=== PATIENT | female | born 1995 | race Caucasian/White ===

== ENCOUNTER → 2017-04-26 09:11 | Outpatient (CLI) | payer BC, MEDICAID, SELFPAY ==
--- NOTE | 2017-04-26 09:14 | NM_ITS ---
CLINICAL: 22-year-old female with reported history of right upper quadrant abdominal pain. RADIONUCLIDE HEPATOBILIARY SCINTIGRAPHY COMPARISON: Abdominal ultrasound report 04/19/2017 FINDINGS: Following the intravenous administration of 5.1 mCi of 99m Tc Mebrofenin, hepatobiliary images reveal: 1. Relatively prompt and homogeneous radiopharmaceutical concentration is noted by a normal sized liver. No parenchymal defects are identified. 2. Gallbladder activity is identified at 10 minutes post radiopharmaceutical administration. 3. Small intestinal tract is not visualized during 60 minutes of pre-CCK sequential imaging. Small bowel activity is identified following the administration of cholecystokinin. 4. Washout of the radiopharmaceutical by the hepatic parenchyma appears qualitatively normal. Cholecystokinin (0.02 ug/kg) was administered intravenously over a 30-minute period. The post CCK gallbladder ejection fraction calculated at 20 minutes following Cholecystokinin administration was noted to be 79.0 % (normal greater than 35%). During 30 minutes of post CCK imaging, there is no scintigraphic evidence of reflux of the radiotracer into the common hepatic duct or refilling of the gallbladder. NM/Hepatobilliary Imaging IMPRESSION: 1. NORMAL 99m Tc Mebrofenin hepatobiliary imaging examination with Cholecystokinin. A. A gallbladder ejection fraction calculated to be greater than 35% following the administration of Cholecystokinin makes the probability of functional hepatobiliary disease (gallbladder and/or sphincter of Oddi dyskinesia) and/or organic hepatobiliary disease (chronic acalculous cholecystitis and/or cystic duct syndrome) to be low. (Roni Riggs et al, Journal of Nuclear Medicine 32:1695, 1990). Electronically Signed: Fernando Manley DO at 9:07 EST Tel , Service support ,
== END ==
PROVIDERS: Family Provider Family Medicine; PCP Family Medicine; Visit Provider Family Medicine
DX: R10.9 Unspecified abdominal pain (principal)
CPT/HCPCS: 78226; A9537; J2805

== ENCOUNTER → 2021-08-21 | Outpatient (CLI) | payer OTHER, SELFPAY ==
[2021-08-21 14:52] LABS: Absolute Lymphocyte Count 1.69 X10^3/uL (0.83-4.51); Absolute Neutrophil Count 4.8 X10^3/uL (2.0-7.7); Basophil# 0.03 X10^3/uL; Basophil% 0.4 % (0-1); Eosinophil# 0.07 X10^3/uL; Hematocrit 43.3 % (37-47); Hemoglobin 14.3 g/dL (12.0-15.0); Lymphocyte # 1.69 X10^3/ul (0.83-4.51); Lymphocyte % 23.2 % (19-41); Mean Corpuscular Hgb 30.8 pg (27.0-32.0); Mean Corpuscular Volume 93.1 fL (81-99); Mean Platelet Vol. 11.2 fl (6.2-12.0); Monocyte# 0.68 X10^3/uL; Monocyte% 9.3 % (0-10); NRBC Flagged by Analyzer 0 % (0-5); Neutrophil # 4.78 X10^3/uL (2.7-7.7); Neutrophil % 65.7 % (47-70); Platelet Count 332 K/mm3 (150-450); RBC Distribution Width SD 41.2 fl (35.1-43.9); Red Blood Count 4.65 M/mm3 (4.2-5.4); White Blood Count 7.3 K/mm3 (4.4-11.0)
[2021-08-21 16:10] LABS: HIV - WCH Non-Reactive (Nonreactive); Hepatitis B Surface Antigen Non-Reactive (Nonreactive); Hepatitis C Antibody Non-Reactive (Nonreactive); Rubella IgG Reactive (Nonreactive); Syphilis Antibodies Non-reactive
[2021-08-25 02:07] LABS: Chlamydia By Nucleic Acid AMP Negative (Negative)
[2021-08-25 16:45] LABS: Gonococcus By Nucleic Acid AMP Negative (Negative)
[2021-08-27 22:30] LABS: HPV Reflexed? NOT INDICATED
== END | disposition home or self-care (01) ==
LOC: WOBLAB 14:29
PROVIDERS: PCP Family Medicine; Visit Provider Student in an Organized Health Care Education/Training Program
DX: Z34.81 Encounter for supervision of other normal pregnancy, first trimester (principal); Z12.4 Encounter for screening for malignant neoplasm of cervix; Z11.3 Encounter for screening for infections with a predominantly sexual mode of transmission
CPT/HCPCS: 36415; 85025; 86703; 86762; 86780; 86803; 87086; 87088; 87340; 87491; 87591; 88175; G0145

== ENCOUNTER → 2021-09-26 | Outpatient (CLI) | payer OTHER, SELFPAY ==
[2021-09-26 15:51] LABS: Glucose Challenge Gest 1H 50g 119 mg/dL (70-140)
== END | disposition home or self-care (01) ==
PROVIDERS: PCP Family Medicine; Visit Provider Obstetrics & Gynecology
DX: Z34.81 Encounter for supervision of other normal pregnancy, first trimester (principal)
CPT/HCPCS: 36415; 82950

== ENCOUNTER → 2022-01-02 | Outpatient (CLI) | payer OTHER, SELFPAY ==
[2022-01-02 10:19] LABS: Absolute Lymphocyte Count 1.76 X10^3/uL (0.83-4.51); Absolute Neutrophil Count 6.2 X10^3/uL (2.0-7.7); Basophil# 0.03 X10^3/uL; Basophil% 0.3 % (0-1); Eosinophils% 2.3 % (0-5); Hematocrit 38.4 % (37-47); Hemoglobin 12.3 g/dL (12.0-15.0); Lymphocyte # 1.76 X10^3/ul (0.83-4.51); Lymphocyte % 19.9 % (19-41); Mean Corpuscular Hgb 29.7 pg (27.0-32.0); Mean Corpuscular Volume 92.8 fL (81-99); Mean Platelet Vol. 10.8 fl (6.2-12.0); Monocyte# 0.59 X10^3/uL; Monocyte% 6.7 % (0-10); NRBC Flagged by Analyzer 0 % (0-5); Neutrophil % 70.1 % (47-70); Platelet Count 323 K/mm3 (150-450); RBC Distribution Width CV 12.5 % (11.6-14.6); RBC Distribution Width SD 42.6 fl (35.1-43.9); Red Blood Count 4.14 M/mm3 (4.2-5.4); White Blood Count 8.8 K/mm3 (4.4-11.0)
[2022-01-02 10:31] LABS: Glucose Challenge Gest 1H 50g 98 mg/dL (70-140)
== END | disposition home or self-care (01) ==
LOC: WOBLAB 09:40
PROVIDERS: PCP Family Medicine; Visit Provider Student in an Organized Health Care Education/Training Program
DX: Z34.83 Encounter for supervision of other normal pregnancy, third trimester (principal)
CPT/HCPCS: 36415; 82950; 85025

== ENCOUNTER 2022-02-09 19:10 | Outpatient (CLI) | payer OTHER, SELFPAY ==
[2022-02-09 19:40] VITALS: PULSE 95; O2SAT 98
[2022-02-09 19:42] VITALS: BP 130/85; PULSE 82; TEMP 37.1
[2022-02-09 20:03] VITALS: BMI 33.3
[2022-02-09] MEDS: Mag Hydrox/Al Hydrox/Simeth 30 ML UDC PO (21:49)
--- NOTE | 2022-02-09 21:57 | PCM.HP.OB ---
HPI - General General Date of Admission: 02/09/22 Chief Complaint: Fall HPI Narrative 26-year-old G4, P2 at 32/5 weeks, FRANCESCO 04/01/2022 by LMP, admitted for overnight observation for fall. Patient was walking in dark this evening and tripped and fell on her abdomen. Reports movement. Denies leaking of fluid or vaginal bleeding. Denies abdominal tenderness. Denies headache or vision changes, chest pain or shortness of breath, nausea or vomiting, diarrhea constipation, fevers or chills. complicated by: History of premature rupture of membranes and preeclampsia in first PFSH PFSH no medical history Home Medications ondansetron 4 mg disintegrating tablet 4 mg PO Q8H PRN PRN Nausea ##10 04/10/17 [Rx Last Taken Unknown] aspirin 81 mg capsule 81 mg PO DAILY 02/09/22 [History Last Taken 02/09/22 09:00] [id number] 1 mg tablet 1 tab PO DAILY 02/09/22 [History Last Taken 02/09/22 09:00] Allergy/AdvReac Type Severity Reaction Status Date / Time oxycodone [Oxycodone] AdvReac Other Verified 04/10/17 15:09 no significant family history no surgical history Social History (Updated 02/09/22 @ 22:[address] Lindsay Goode, DO) Smoking Status: Former smoker History 4 Elective abortions Hx Para 2 Spontaneous abortions 1 Hx # Term Pregnancies 1 Ectopic pregnancies Hx # Pregnancies 1 Multiple births # of living children 2 NST FHR Rate Baby A Baseline: 135 Variability:: Moderate Accelerations:: 15 x 15 Decelerations:: None NST Reactive:: Yes Uterine Activity:: irregular ROS Constitutional Constitutional: Reports systems reviewed and no addt'l complaints, except as documented ENT HEENT: Reports systems reviewed and no addt'l complaints, except as documented Cardiovascular Cardiovascular: Reports systems reviewed and no addt'l complaints, except as documented Respiratory/Chest Respiratory/Chest: Reports systems reviewed and no addt'l complaints, except as documented Gastrointestinal Gastrointestinal: Reports systems reviewed and no addt'l complaints, except as documented Genitourinary Genitourinary: Reports systems reviewed and no addt'l complaints, except as documented Musculoskeletal Musculoskeletal: Reports systems reviewed and no addt'l complaints, except as documented Integumentary Integumentary: Reports systems reviewed and no addt'l complaints, except as documented Neurologic Neurologic: Reports systems reviewed and no addt'l complaints, except as documented Psychiatric Psychiatric: Reports systems reviewed and no addt'l complaints, except as documented Endocrine Endocrinology: Reports systems reviewed and no addt'l complaints, except as documented Hematologic/Lymphatic Hematologic/Lymphatic: Reports systems reviewed and no addt'l complaints, except as documented Allergic/Immunologic Allergic/Immunologic: Reports systems reviewed and no addt'l complaints, except as documented Vital Signs Vital Signs Vital Signs: 02/09/22 19:40 02/09/22 19:40 02/09/22 19:42 Temperature Temperature Source Pulse Rate 95 Blood Pressure 130/85 H BP Systolic 130 BP Diastolic 85 Pulse Ox 98 02/09/22 19:42 02/09/22 19:42 02/09/22 19:42 Temperature 98.8 F Temperature Source Temporal Pulse Rate 82 Blood Pressure BP Systolic BP Diastolic Pulse Ox Weight Weight: 77.383 kg Body Mass Index (BMI) 33.3 Physical Exam Const alert, oriented x3 and no apparent distress General Appearance: cooperative and comfortable HEENT normocephalic Head and Scalp: atraumatic Resp normal respiratory effort Cardio regular rate GI soft to palpation, non-tender and non-distended Inspection: gravid Back/Spine normal ROM Extremity normal to inspection and no pedal edema Skin no rashes or lesions noted Neuro moves all extremities, no focal motor deficits and no sensory deficits noted Psych mental status grossly normal Labs Labs Labs: Blood Type A POSITIVE Antibody Screen NEGATIVE Hct 38.4 % (37-47) Hgb 12.3 g/dL (12.0-15.0) Syphilis Total Ab Non-reactive Rubella IgG Antibody Reactive (Nonreactive) Hep Bs Antigen Non-Reactive (Nonreactive) Chlamydia DNA (RADHA) Negative (Negative) Neisseria gonorrhoeae DNA (RADHA) Negative (Negative) HIV 1&2 Antibody Non-Reactive (Nonreactive) Glucose 1 Hr 50 gm 98 mg/dL (70-140) Group B Strep DNA Negative (Negative) Rhogam given: No Miscellaneous Test . Assessment & Plan (1) Fall: PLAN: 26-year-old G4, P2 at 32/5 weeks admitted for prolonged monitoring status post fall. Patient having irregular contractions, occasionally feeling tightening. No signs of labor or abruption at this time. status reassuring. Patient is A positive blood type. Admit to observation with continuous external monitoring, regular diet, up ad shiloh. All questions answered.
[2022-02-09 23:40] VITALS: TEMP 36.6
[2022-02-09 23:41] VITALS: BP 130/79; PULSE 84
[2022-02-10 04:00] VITALS: BP 113/72; PULSE 85; PULSE 90; TEMP 36.7; O2SAT 98
[2022-02-10 08:07] VITALS: BP 141/83; PULSE 56; TEMP 36; O2SAT 99
[2022-02-10 08:08] VITALS: BP 141/83; PULSE 82
--- NOTE | 2022-02-10 08:38 | PCM.PN.OB ---
Subjective Subjective Patient feeling well. Having some soreness, reports normal movement. Denies vaginal bleeding, leaking of fluid. Feels occasional tightening. Objective Data Objective Data Vital Signs: Vital Signs Temp Pulse BP Pulse Ox 96.8 F L 82 141/83 H 99 02/10/22 08:07 02/10/22 08:08 02/10/22 08:08 02/10/22 08:07 Weight: 77.383 kg Body Mass Index (BMI) 33.3 Physical Exam Const alert, oriented x3 and no apparent distress HEENT normocephalic Resp normal respiratory effort Cardio regular rate GI soft to palpation, non-tender and non-distended GI Narrative: No ecchymoses. Inspection: gravid Extremity no pedal edema Skin no rashes or lesions noted Neuro moves all extremities, no focal motor deficits and no sensory deficits noted Psych mental status grossly normal and affect normal NST FHR Rate Baby A Baseline: 135 Variability:: Moderate Accelerations:: 15 x 15 Decelerations:: None NST Reactive:: Yes Assessment & Plan (1) Fall: PLAN: 26-year-old G4, P2 at 32/6 weeks admitted for prolonged monitoring status post fall. Extended monitoring with reassuring status. Patient feeling well. No signs of abruption at this time. Discharge home with precautions. Patient to call with regular contractions, decreased movement, vaginal bleeding, leaking of fluid. One-time elevated blood pressure 140 systolic. Asymptomatic. Patient to follow-up on Wednesday with her routine visit.
== END 2022-02-10 08:49 | disposition home or self-care (01) ==
LOC: WPOUT 19:18 → WP 19:19
PROVIDERS: PCP Family Medicine; Visit Provider Student in an Organized Health Care Education/Training Program
DX: Z04.3 Encounter for examination and observation following other accident (principal); Z3A.32 32 weeks gestation of pregnancy; Z79.82 Long term (current) use of aspirin; Z87.891 Personal history of nicotine dependence
CPT/HCPCS: 59025; 59050; 99218; G0378

== ENCOUNTER → 2022-03-06 | Outpatient (CLI) | payer OTHER, SELFPAY | END | disposition home or self-care (01) | LOC: LABSPEC 11:28 | PROVIDERS: PCP Family Medicine; Visit Provider Student in an Organized Health Care Education/Training Program | DX: Z36.85 Encounter for antenatal screening for Streptococcus B (principal) | CPT/HCPCS: 87081 ==

== ENCOUNTER 2022-03-08 04:35 | Outpatient (CLI) | payer OTHER, SELFPAY ==
[2022-03-08] VITALS (11 sets, daily range): BP systolic 123–145; BP diastolic 70–91; PULSE 76–98; TEMP 37.3; O2SAT 98; BMI 33.2
[2022-03-08 06:40] LABS: Bacteria 0 SEEN /hpf (None Seen); Mucous, Urine 0 SEEN /hpf (<or=2+); Red Blood Cells-Urine 0 SEEN /hpf (0-5); Squamous Epithelial Cells - UA 0 SEEN /hpf (5-10)
[2022-03-08 06:42] LABS: Hematocrit 37.3 % (37-47); Hemoglobin 11.9 g/dL (12.0-15.0); Mean Corp Hgb Conc 31.9 g/dL (32-36); Mean Corpuscular Hgb 28.5 pg (27.0-32.0); Mean Corpuscular Volume 89.4 fL (81-99); Mean Platelet Vol. 11.6 fl (6.2-12.0); Platelet Count 291 K/mm3 (150-450); RBC Distribution Width CV 12.7 % (11.6-14.6); RBC Distribution Width SD 41.8 fl (35.1-43.9); Red Blood Count 4.17 M/mm3 (4.2-5.4); White Blood Count 10.3 K/mm3 (4.4-11.0)
[2022-03-08 06:52] LABS: Color, Urine Yellow (Yellow); Glucose, Dipstick Normal (Normal); Ketone-Dipstick 50 mg/dl (Negative); Leukocyte Esterase-Dipstick 100 /ul (Negative); Nitrite-Dipstick Negative (Negative); Occult Blood-Urine 10 /ul (Negative); Protein-Dipstick 15 mg/dl (Negative); Specific Gravity, Urine 1.025 (1.002-1.030); Urine Bilirubin Dipstick Negative (Negative); Urine Clarity Sl. Cloudy (Clear); Urine Urobilinogen 1 mg/dl (Normal)
[2022-03-08 07:00] LABS: Calcium Oxalate Crystals Ur 2+ /hpf (<or=2+); White Blood Cells 0-5 SEEN /hpf (0-5)
[2022-03-08 07:02] LABS: Protein, Urine (Random) 26.4 mg/dL (<11.9); Protein:Creat Ratio 100 mg/g CRE (0-200)
[2022-03-08 07:08] LABS: AST(SGOT) 16 U/L (15-37); Alanine Aminotransfer ALT/SGPT 12 U/L (13-56); Creatinine, Serum 0.71 mg/dL (0.55-1.02); EST Glomerular Filtration Rate 103 mL/min (>60); Est Glom Filt Rate - Afr Amer 125 mL/min (>60); Estimated Creatinine Clearance 83.98 ml/min; LDH 186 U/L (84-246); Uric Acid 4.1 mg/dL (2.6-6.0)
--- NOTE | 2022-03-09 17:18 | PCM.PN.BLA ---
Progress Note 27-year-old at 36 weeks presenting with contractions. Cervical exam 2.5 cm, repeat unchanged per RN. status reassuring. Contractions spacing out, less painful. Additionally patient had 2 elevated blood pressure in the 140 systolic. Pree labs were sent, which were within normal limits. Patient comfortable with discharge home. Not in labor. status reassuring. Discharge home with labor precautions. Follow-up in office this week as scheduled.
== END 2022-03-08 10:05 | disposition home or self-care (01) ==
LOC: WPOUT 04:39 → WP 04:40
PROVIDERS: PCP Family Medicine; Visit Provider Student in an Organized Health Care Education/Training Program
DX: O47.03 False labor before 37 completed weeks of gestation, third trimester (principal); Z79.82 Long term (current) use of aspirin; Z3A.36 36 weeks gestation of pregnancy
CPT/HCPCS: 36415; 59025; 59050; 81001; 82565; 82570; 83615; 84156; 84450; 84460; 84550; 85027; 87086; 87088

== ENCOUNTER → 2022-03-13 | Outpatient (CLI) | payer OTHER, SELFPAY ==
[2022-03-13 12:29] LABS: Absolute Lymphocyte Count 1.81 X10^3/uL (0.83-4.51); Absolute Neutrophil Count 5.7 X10^3/uL (2.0-7.7); Basophil# 0.02 X10^3/uL; Basophil% 0.2 % (0-1); Eosinophil# 0.17 X10^3/uL; Eosinophils% 2.1 % (0-5); Hematocrit 36.1 % (37-47); Hemoglobin 11.7 g/dL (12.0-15.0); Lymphocyte # 1.81 X10^3/ul (0.83-4.51); Mean Corp Hgb Conc 32.4 g/dL (32-36); Mean Corpuscular Hgb 28.9 pg (27.0-32.0); Mean Corpuscular Volume 89.1 fL (81-99); Mean Platelet Vol. 12.1 fl (6.2-12.0); Monocyte# 0.53 X10^3/uL; Monocyte% 6.4 % (0-10); NRBC Flagged by Analyzer 0 % (0-5); Neutrophil # 5.65 X10^3/uL (2.7-7.7); Neutrophil % 68.8 % (47-70); Platelet Count 251 K/mm3 (150-450); RBC Distribution Width CV 12.8 % (11.6-14.6); RBC Distribution Width SD 41.8 fl (35.1-43.9); Red Blood Count 4.05 M/mm3 (4.2-5.4); White Blood Count 8.2 K/mm3 (4.4-11.0)
[2022-03-13 12:30] LABS: Protein, Urine (Random) 27.6 mg/dL (<11.9); Protein:Creat Ratio 114 mg/g CRE (0-200)
[2022-03-13 12:40] LABS: ALB/GLOB Ratio 0.6 RATIO (0.9-2.4); AST(SGOT) 18 U/L (15-37); Alanine Aminotransfer ALT/SGPT 11 U/L (13-56); Albumin, Serum 2.1 g/dL (3.2-5.0); Alkaline Phosphatase 132 U/L (45-117); Anion Gap 5 (5-15); BUN 7 mg/dL (7-18); BUN/Creat Ratio 10.4 RATIO (10-20); Calcium,Total 8.2 mg/dL (8.5-10.1); Chloride 109 mmol/L (98-107); Creatinine, Serum 0.67 mg/dL (0.55-1.02); EST Glomerular Filtration Rate 110 mL/min (>60); Est Glom Filt Rate - Afr Amer 133 mL/min (>60); Globulin 3.6 g/dL (2.2-4.2); Glucose 89 mg/dL (74-106); LDH 197 U/L (84-246); Potassium 3.9 mmol/L (3.5-5.1); Protein, Total 5.7 g/dL (6.4-8.2); Sodium Level 137 mmol/L (136-145)
== END | disposition home or self-care (01) ==
LOC: WOBLAB 11:36
PROVIDERS: PCP Family Medicine; Visit Provider Student in an Organized Health Care Education/Training Program
DX: Z34.83 Encounter for supervision of other normal pregnancy, third trimester (principal)
CPT/HCPCS: 36415; 80053; 82570; 83615; 84156; 85025; 87086; 87088

== ENCOUNTER → 2022-03-24 | Outpatient (CLI) | payer OTHER, SELFPAY ==
[2022-03-24 17:39] LABS: Absolute Lymphocyte Count 1.59 X10^3/uL (0.83-4.51); Absolute Neutrophil Count 6.6 X10^3/uL (2.0-7.7); Basophil# 0.02 X10^3/uL; Basophil% 0.2 % (0-1); Eosinophil# 0.13 X10^3/uL; Eosinophils% 1.4 % (0-5); Hematocrit 36.9 % (37-47); Hemoglobin 11.4 g/dL (12.0-15.0); Lymphocyte # 1.59 X10^3/ul (0.83-4.51); Lymphocyte % 17.7 % (19-41); Mean Corp Hgb Conc 30.9 g/dL (32-36); Mean Corpuscular Hgb 27.7 pg (27.0-32.0); Mean Corpuscular Volume 89.8 fL (81-99); Mean Platelet Vol. 12.3 fl (6.2-12.0); Monocyte# 0.65 X10^3/uL; Monocyte% 7.2 % (0-10); NRBC Flagged by Analyzer 0 % (0-5); Neutrophil # 6.56 X10^3/uL (2.7-7.7); Neutrophil % 72.9 % (47-70); Platelet Count 258 K/mm3 (150-450); RBC Distribution Width CV 13.2 % (11.6-14.6); RBC Distribution Width SD 43.4 fl (35.1-43.9); Red Blood Count 4.11 M/mm3 (4.2-5.4)
[2022-03-24 17:59] LABS: Protein:Creat Ratio 357 mg/g CRE (0-200)
[2022-03-24 18:41] LABS: ALB/GLOB Ratio 0.6 RATIO (0.9-2.4); AST(SGOT) 14 U/L (15-37); Alanine Aminotransfer ALT/SGPT 10 U/L (13-56); Albumin, Serum 2.2 g/dL (3.2-5.0); Alkaline Phosphatase 145 U/L (45-117); Anion Gap 7 (5-15); BUN 9 mg/dL (7-18); BUN/Creat Ratio 12.2 RATIO (10-20); Calcium,Total 8.4 mg/dL (8.5-10.1); Chloride 108 mmol/L (98-107); Creatinine, Serum 0.74 mg/dL (0.55-1.02); EST Glomerular Filtration Rate 99 mL/min (>60); Est Glom Filt Rate - Afr Amer 120 mL/min (>60); Globulin 3.7 g/dL (2.2-4.2); Glucose 83 mg/dL (74-106); LDH 177 U/L (84-246); Potassium 4.3 mmol/L (3.5-5.1); Protein, Total 5.9 g/dL (6.4-8.2); Sodium Level 137 mmol/L (136-145)
== END | disposition home or self-care (01) ==
LOC: WOBLAB 17:05
PROVIDERS: PCP Family Medicine; Visit Provider Student in an Organized Health Care Education/Training Program
DX: Z34.83 Encounter for supervision of other normal pregnancy, third trimester (principal)
CPT/HCPCS: 36415; 80053; 82570; 83615; 84156; 85025; 87086; 87088

== ENCOUNTER 2022-03-25 07:30 | Inpatient (IN) | payer OTHER, SELFPAY ==
[2022-03-25] VITALS (73 sets, daily range): BP systolic 109–172; BP diastolic 57–107; PULSE 60–126; RESP 18–20; TEMP 36.1–38.9; O2SAT 89–100; BMI 34.8
--- NOTE | 2022-03-25 08:19 | PCM.HP.BLA ---
History and Physical Date of Admission: 03/25/22 Chief complaint: Induction of labor at term History present illness: 27-year-old at 39 weeks and 0 days with FRANCESCO 04/01/2022 arrives for induction of labor at term. Denies headache, visual changes, chest pain, shortness of breath, nausea vomit, right upper quadrant pain. Patient states good movement. is complicated now by preeclampsia without severe features Obstetric history: G1: Term G2: Term G3: SAB G4: Current Medications: None Past medical history: None Past surgical history: None Allergies: Bactrim, codeine Family history: Denies history DVT or PE Social history: Former smoker, denies alcohol or drug use Review of systems: Besides above pertinent positives a full review of systems was performed and found to be negative Physical exam: Vitals: Blood pressure 141/87 pulse 98 temperature 97.2 ?F SPO2 90% on room air General: Normal-appearing no acute distress HEENT: Normocephalic/atraumatic no cervical of adenopathy Cardiac/respiratory: No use of accessory muscles, nonlabored breathing Abdomen: Soft, nontender, gravid Pelvic exam: Cervical exam 60/-3. AROM clear fluid Extremities: No peripheral edema normal peripheral pulses Psych: Normal affect normal demeanor nonpressured speech Labs: Pending Assessment plan: 27-year-old G4, P2 at 39 weeks and 0 days arrives for induction of labor at term. Pitocin induction. AROM clear fluid. GBS negative. Patient with elevated blood pressures here and in office along with proteinuria now diagnosed with preeclampsia without severe features, HELLP labs otherwise stable. Asymptomatic. We will continue to monitor signs and symptoms of severe features.
[2022-03-25 08:36] LABS: Absolute Lymphocyte Count 1.97 X10^3/uL (0.83-4.51); Absolute Neutrophil Count 5.4 X10^3/uL (2.0-7.7); Basophil# 0.02 X10^3/uL; Basophil% 0.2 % (0-1); Eosinophil# 0.15 X10^3/uL; Eosinophils% 1.9 % (0-5); Hematocrit 35.1 % (37-47); Hemoglobin 11.4 g/dL (12.0-15.0); Lymphocyte # 1.97 X10^3/ul (0.83-4.51); Lymphocyte % 24.3 % (19-41); Mean Corp Hgb Conc 32.5 g/dL (32-36); Mean Corpuscular Hgb 28.6 pg (27.0-32.0); Mean Corpuscular Volume 88.2 fL (81-99); Mean Platelet Vol. 11.9 fl (6.2-12.0); Monocyte# 0.58 X10^3/uL; Monocyte% 7.2 % (0-10); NRBC Flagged by Analyzer 0 % (0-5); Neutrophil # 5.35 X10^3/uL (2.7-7.7); Platelet Count 269 K/mm3 (150-450); RBC Distribution Width CV 13.3 % (11.6-14.6); RBC Distribution Width SD 42.2 fl (35.1-43.9); Red Blood Count 3.98 M/mm3 (4.2-5.4); White Blood Count 8.1 K/mm3 (4.4-11.0)
[2022-03-25] MEDS: LACTATED RINGERS 500 ML 999 ML IV (08:53)
[2022-03-25] MEDS: Lactated Ringers 1,000 ML 50 ML IV (08:53)
[2022-03-25] MEDS: Oxytocin 15 Units/NS 250ml 15 UNITS/250 ML IV.SOLN 2 UNITS IV (09:15)
[2022-03-25] MEDS: fentaNYL-bupivacaine (epidural) 100 ML BAG EPIDURAL (09:45)
[2022-03-25] MEDS: miSOPROStol 200 MCG Tablet 1000 MCG RC (12:20)
--- NOTE | 2022-03-25 12:26 | EX.PCM.OBRPT ---
Vaginal Delivery Findings Description of Procedure: Normal spontaneous vaginal delivery of a viable male , vertex NICHOLAS. Head and shoulders delivered with ease. Cord clamped and cut. Baby handed off to patient. Placenta delivered via cord traction and fundal massage. IV oxytocin initiated in order to facilitate uterine contractions. First-degree midline perineal laceration noted and repaired in typical fashion. 1000 mcg of Cytotec UT given with short second stage of labor. EBL 250 cc Apgars 9/9
--- NOTE | 2022-03-25 15:44 | NURSING ---
Report given to Gabrielle PARRA, assuming pt care at this time.
--- NOTE | 2022-03-25 16:15 | NURSING ---
Pt called this RN into room at 1608 with complaints of feeling like her ears are warm and fuzzy and general complaints she just didn't feel well. Vital signs as follows- BP 164/107, Pulse 106, Respirations 20, Pulse ox 98%, Temporal temperature 101.8 degrees. Bleeding appropriate and fundus is at -1 with scant bleeding. RN taking over pt care is in room and plans to check oral temperature and retake BP in 15 minutes.
--- NOTE | 2022-03-25 17:36 | NURSING ---
Called Dr. Claudy Goode and updated on increasing trending BP's, high temperature, visual disturbances, and that her head feels funny. Orders received for labs now and in AM, Tylenol for fever, Amp and Gent, and to start her on Labetolol now. See orders for dosages. To call Dr. Goode if symptoms persist after starting medications.
[2022-03-25] MEDS: Acetaminophen 500 MG Tablet 1000 MG PO (17:54)
[2022-03-25] MEDS: Labetalol 200 MG Tablet PO (17:54)
[2022-03-25 18:33] LABS: Hematocrit 35.3 % (37-47); Hemoglobin 11.6 g/dL (12.0-15.0); Mean Corp Hgb Conc 32.9 g/dL (32-36); Mean Corpuscular Hgb 28.7 pg (27.0-32.0); Mean Corpuscular Volume 87.4 fL (81-99); Platelet Count 239 K/mm3 (150-450); RBC Distribution Width CV 13.2 % (11.6-14.6); RBC Distribution Width SD 41.6 fl (35.1-43.9); Red Blood Count 4.04 M/mm3 (4.2-5.4); White Blood Count 11.9 K/mm3 (4.4-11.0)
[2022-03-25 18:47] LABS: ALB/GLOB Ratio 0.6 RATIO (0.9-2.4); AST(SGOT) 18 U/L (15-37); Alanine Aminotransfer ALT/SGPT 10 U/L (13-56); Albumin, Serum 2.1 g/dL (3.2-5.0); Alkaline Phosphatase 127 U/L (45-117); Anion Gap 7 (5-15); BUN 8 mg/dL (7-18); BUN/Creat Ratio 10.9 RATIO (10-20); Calcium,Total 7.8 mg/dL (8.5-10.1); Chloride 111 mmol/L (98-107); Creatinine, Serum 0.74 mg/dL (0.55-1.02); EST Glomerular Filtration Rate 99 mL/min (>60); Est Glom Filt Rate - Afr Amer 120 mL/min (>60); Estimated Creatinine Clearance 80.57 ml/min; Globulin 3.4 g/dL (2.2-4.2); Glucose 109 mg/dL (74-106); LDH 229 U/L (84-246); Potassium 3.5 mmol/L (3.5-5.1); Protein, Total 5.5 g/dL (6.4-8.2); Sodium Level 139 mmol/L (136-145)
[2022-03-25] MEDS: 0.9% Saline Lock 10 ML Syringe IV ×3 (18:53→19:57)
[2022-03-26] VITALS (11 sets, daily range): BP systolic 112–149; BP diastolic 58–89; PULSE 62–86; RESP 14–18; TEMP 36.1–37.1; O2SAT 97
[2022-03-26] MEDS: Acetaminophen 500 MG Tablet 1000 MG PO ×2 (00:07→22:30)
[2022-03-26] MEDS: 0.9% Saline Lock 10 ML Syringe IV ×3 (01:11→07:02)
[2022-03-26 05:41] LABS: Hematocrit 30.8 % (37-47); Hemoglobin 10.1 g/dL (12.0-15.0); Mean Corp Hgb Conc 32.8 g/dL (32-36); Mean Corpuscular Hgb 29.2 pg (27.0-32.0); Mean Platelet Vol. 11.4 fl (6.2-12.0); Platelet Count 190 K/mm3 (150-450); RBC Distribution Width CV 13.5 % (11.6-14.6); RBC Distribution Width SD 43.8 fl (35.1-43.9); Red Blood Count 3.46 M/mm3 (4.2-5.4); White Blood Count 8.3 K/mm3 (4.4-11.0)
[2022-03-26 05:58] LABS: ALB/GLOB Ratio 0.6 RATIO (0.9-2.4); AST(SGOT) 13 U/L (15-37); Alanine Aminotransfer ALT/SGPT 11 U/L (13-56); Albumin, Serum 1.7 g/dL (3.2-5.0); Alkaline Phosphatase 97 U/L (45-117); Anion Gap 6 (5-15); BUN 8 mg/dL (7-18); BUN/Creat Ratio 12.2 RATIO (10-20); Calcium,Total 7.7 mg/dL (8.5-10.1); Chloride 111 mmol/L (98-107); Creatinine, Serum 0.65 mg/dL (0.55-1.02); EST Glomerular Filtration Rate 114 mL/min (>60); Est Glom Filt Rate - Afr Amer 138 mL/min (>60); Estimated Creatinine Clearance 91.73 ml/min; Glucose 76 mg/dL (74-106); LDH 247 U/L (84-246); Potassium 3.7 mmol/L (3.5-5.1); Protein, Total 4.7 g/dL (6.4-8.2); Sodium Level 139 mmol/L (136-145)
--- NOTE | 2022-03-26 07:38 | PN.OBGYN_ITS ---
Subjective Subjective Patient now asymptomatic. Denies fevers, chills, chest pain, shortness of breath, nausea vomit, right upper quadrant pain. Patient denies headache or visual changes Objective Data Objective Data Vital Signs: Vital Signs Temp Pulse Resp BP Pulse Ox O2 Del Method 97.0 F L 62 18 112/63 97 Room Air 03/26/22 04:23 03/26/22 04:23 03/26/22 04:23 03/26/22 04:23 03/26/22 00:01 03/26/22 04:23 Oxygen Delivery Method Room Air Weight: 178 lb 5.663 oz Body Mass Index (BMI) 34.8 Intake & Output: Intake and Output for Last 24 Hours 03/24/22 03/25/22 03/26/22 23:59 23:59 23:59 Intake Total 1442.13 / 1442.13 100 / 100 Output Total 800 / 800 575 / 575 Balance 642.13 / 642.13 -475 / -475 Lab / Micro Data Result Diagrams: 03/26/22 05:35 03/26/22 05:35 Labs: Laboratory Results - last 24 hr 03/25/22 08:05: WBC 8.1, RBC 3.98 L, Hgb 11.4 L, Hct 35.1 L, MCV 88.2, MCH 28.6, MCHC 32.5 D, RDW Std Deviation 42.2, RDW Coeff of Lia 13.3, Plt Count 269, MPV 11.9, Immature Gran % (Auto) 0.400, Neut % (Auto) 66.0, Lymph % (Auto) 24.3, [place] % (Auto) 7.2, Eos % (Auto) 1.9, Baso % (Auto) 0.2, Absolute Neuts (auto) 5.4, Absolute Lymphs (auto) 1.97, Nucleated RBC % 0 03/25/22 08:05: Blood Type A POSITIVE, Antibody Screen NEGATIVE 03/25/22 18:15: WBC 11.9 H, RBC 4.04 L, Hgb 11.6 L, Hct 35.3 L, MCV 87.4, MCH 28.7, MCHC 32.9, RDW Std Deviation 41.6, RDW Coeff of Lia 13.2, Plt Count 239, MPV 12.0 03/25/22 18:15: Sodium 139, Potassium 3.5, Chloride 111 H, Carbon Dioxide 21.0, Anion Gap 7, BUN 8, Creatinine 0.74, Estim Creat Clear Calc 80.57, Est GFR (MDRD) Af Amer 120, Est GFR (MDRD) Non-Af 99, BUN/Creatinine Ratio 10.9, Glucose 109 H, Calcium 7.8 L, Total Bilirubin 0.50, AST 18, ALT 10 L, Alkaline Phosphatase 127 H, Lactate Dehydrogenase 229, Total Protein 5.5 L, Albumin 2.1 L , Globulin 3.4, Albumin/Globulin Ratio 0.6 L 03/26/22 05:35: Sodium 139, Potassium 3.7, Chloride 111 H, Carbon Dioxide 22.0, Anion Gap 6, BUN 8, Creatinine 0.65, Estim Creat Clear Calc 91.73, Est GFR (MDRD) Af Amer 138, Est GFR (MDRD) Non-Af 114, BUN/Creatinine Ratio 12.2, Glucose 76, Calcium 7.7 L, Total Bilirubin 0.20, AST 13 L, ALT 11 L, Alkaline Phosphatase 97, Lactate Dehydrogenase 247 H, Total Protein 4.7 L, Albumin 1.7 L, Globulin 3.0, Albumin/Globulin Ratio 0.6 L 03/26/22 05:35: WBC 8.3, RBC 3.46 L, Hgb 10.1 L, Hct 30.8 L, MCV 89.0, MCH 29.2, MCHC 32.8, RDW Std Deviation 43.8, RDW Coeff of Lia 13.5, Plt Count 190, MPV 11.4 Physical Exam Const alert, oriented x3, no apparent distress, average body habitus, healthy appearing and well nourished HEENT normocephalic and moist oral mucous membranes Eyes PERRL Neck full ROM Resp normal respiratory effort, no retractions and no use of accessory muscles GI GI Narrative: Soft, nontender, uterus firm and below umbilicus nontender Extremity normal to inspection, full ROM and no clubbing, cyanosis or edema Neuro moves all extremities and no focal motor deficits Psych mental status grossly normal, affect normal, speech normal and activity/motor behavior normal Assessment & Plan (1) Vaginal delivery: PLAN: day 1. Breast-feeding. Overnight patient with isolated maternal temperature of greater than 102 Fahrenheit along with chills. No other signs or symptoms of suspected chorioamnionitis. Treated as isolated maternal temperature given ampicillin and gentamicin, will continue for 24 hours. Treat fevers with Tylenol, patient now asymptomatic and afebrile. Preeclampsia without severe features, patient also with elevated blood pressures treated with labetalol 200mg p.o. last night, will decrease to labetalol 100 mg p.o. twice daily now. We will continue to monitor
[2022-03-26] MEDS: Labetalol 100 MG Tablet PO ×2 (08:18→21:15)
[2022-03-27] VITALS (18 sets, daily range): BP systolic 126–184; BP diastolic 68–91; PULSE 61–84; RESP 15–18; TEMP 36.2–36.6; O2SAT 97–99
[2022-03-27 06:17] LABS: Absolute Lymphocyte Count 2.38 X10^3/uL (0.83-4.51); Absolute Neutrophil Count 4.8 X10^3/uL (2.0-7.7); Basophil# 0.02 X10^3/uL; Basophil% 0.2 % (0-1); Eosinophil# 0.45 X10^3/uL; Eosinophils% 5.4 % (0-5); Hematocrit 31.9 % (37-47); Lymphocyte # 2.38 X10^3/ul (0.83-4.51); Lymphocyte % 28.8 % (19-41); Mean Corp Hgb Conc 31.3 g/dL (32-36); Mean Corpuscular Hgb 28.2 pg (27.0-32.0); Mean Corpuscular Volume 89.9 fL (81-99); Mean Platelet Vol. 11.3 fl (6.2-12.0); Monocyte# 0.57 X10^3/uL; Monocyte% 6.9 % (0-10); NRBC Flagged by Analyzer 0 % (0-5); Neutrophil # 4.79 X10^3/uL (2.7-7.7); Neutrophil % 58.1 % (47-70); Platelet Count 220 K/mm3 (150-450); RBC Distribution Width CV 13.6 % (11.6-14.6); RBC Distribution Width SD 44.5 fl (35.1-43.9); Red Blood Count 3.55 M/mm3 (4.2-5.4); White Blood Count 8.3 K/mm3 (4.4-11.0)
[2022-03-27 06:46] LABS: ALB/GLOB Ratio 0.6 RATIO (0.9-2.4); AST(SGOT) 10 U/L (15-37); Alanine Aminotransfer ALT/SGPT 11 U/L (13-56); Albumin, Serum 1.9 g/dL (3.2-5.0); Alkaline Phosphatase 97 U/L (45-117); Anion Gap 8 (5-15); BUN 10 mg/dL (7-18); BUN/Creat Ratio 17.2 RATIO (10-20); Calcium,Total 7.8 mg/dL (8.5-10.1); Chloride 111 mmol/L (98-107); Creatinine, Serum 0.58 mg/dL (0.55-1.02); EST Glomerular Filtration Rate 130 mL/min (>60); Est Glom Filt Rate - Afr Amer 157 mL/min (>60); Globulin 3.2 g/dL (2.2-4.2); Glucose 76 mg/dL (74-106); LDH 231 U/L (84-246); Potassium 3.7 mmol/L (3.5-5.1); Protein, Total 5.1 g/dL (6.4-8.2); Sodium Level 139 mmol/L (136-145)
--- NOTE | 2022-03-27 07:56 | PCM.PN.OB ---
Subjective Subjective No overnight complaints. Denies headache, vision changes, chest pain, shortness of breath, nausea vomit, right upper quadrant pain Objective Data Objective Data Vital Signs: Vital Signs Temp Pulse Resp BP Pulse Ox O2 Del Method 97.8 F 63 18 142/68 H 97 Room Air 03/27/22 02:35 03/27/22 02:38 03/27/22 02:35 03/27/22 02:38 03/26/22 11:11 03/26/22 11:11 Oxygen Delivery Method Room Air Weight: 178 lb 5.663 oz Body Mass Index (BMI) 34.8 Intake & Output: Intake and Output for Last 24 Hours 03/25/22 03/26/22 03/27/22 23:59 23:59 23:59 Intake Total 1442.13 / 1442.13 300 / 300 Output Total 800 / 800 575 / 575 Balance 642.13 / 642.13 -275 / -275 Lab / Micro Data Result Diagrams: 03/27/22 06:09 03/27/22 06:09 Labs: Laboratory Results - last 24 hr 03/27/22 06:09: Sodium 139, Potassium 3.7, Chloride 111 H, Carbon Dioxide 20.0 L, Anion Gap 8, BUN 10, Creatinine 0.58, Estim Creat Clear Calc 102.80, Est GFR (MDRD) Af Amer 157, Est GFR (MDRD) Non-Af 130, BUN/Creatinine Ratio 17.2, Glucose 76, Calcium 7.8 L, Total Bilirubin 0.20, AST 10 L, ALT 11 L, Alkaline Phosphatase 97, Lactate Dehydrogenase 231, Total Protein 5.1 L, Albumin 1.9 L, Globulin 3.2, Albumin/Globulin Ratio 0.6 L 03/27/22 06:09: WBC 8.3, RBC 3.55 L, Hgb 10.0 L, Hct 31.9 L, MCV 89.9, MCH 28.2, MCHC 31.3 L, RDW Std Deviation 44.5 H, RDW Coeff of Lia 13.6, Plt Count 220, MPV 11.3, Immature Gran % (Auto) 0.600, Neut % (Auto) 58.1, Lymph % (Auto) 28.8, [place] % (Auto) 6.9, Eos % (Auto) 5.4 H, Baso % (Auto) 0.2, Absolute Neuts (auto) 4.8, Absolute Lymphs (auto) 2.38, Nucleated RBC % 0 Physical Exam Const alert, oriented x3, no apparent distress, average body habitus, healthy appearing and well nourished HEENT normocephalic and moist oral mucous membranes Eyes PERRL Neck full ROM Resp normal respiratory effort, no retractions and no use of accessory muscles Extremity normal to inspection, full ROM and no clubbing, cyanosis or edema Neuro moves all extremities and no focal motor deficits Psych mental status grossly normal, affect normal, speech normal and activity/motor behavior normal Assessment & Plan (1) Vaginal delivery: PLAN: day 2. Breast-feeding. to see. 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 Preeclampsia without severe features, currently on labetalol 100 mg twice daily. Patient asymptomatic. We will continue to titrate blood pressure medication and monitor blood pressures. Likely home tomorrow
[2022-03-27] MEDS: Benzocaine/Lanolin/Aloe Vera 1 SPRAY EACH TOPICAL (09:25)
[2022-03-27] MEDS: Senna/Docusate Sodium 1 Tablet PO (09:25)
[2022-03-27] MEDS: Labetalol 100 MG Tablet PO (09:25)
--- NOTE | 2022-03-27 16:35 | CASEMGMT ---
Social Work Assessment Labor and Delivery Unit Date of Referral: 03.25.22 Time of Referral: 152 Referred By: Dr. Marine Cho Date of Intervention: 03.27.22 Time of Intervention: Approximately [id number] Reason for Referral: Maternal history of depression and depression. History obtained from: Mother of baby (MOB) Boyd Palm and medical records. Household composition: MOB, father of baby (FOB) Jose Palm, and 2 older children. Home situation is reported as safe and adequate. Patient's parent/guardian status: KELLEY is a 29 year old female, to the FOB who is of decent for the last 8 years (together for 12). MOB denies any form of abuse in this relationship. MOB and FOB have 3 children now: Yuval (9), Juan J (7-2-15), and baby boy Home (03-25-22). Medical History: KELLEY is 4, P2 to 3 after delivering Home. care adequate. KELLEY with Pre-eclampsia. History of 34 week delivery with first child. Home delivered full term, weighing 6 pounds 5 ounces. Apgars 8 and 9 at 1 and 5 minutes of life respectively. Educational Status: High school. No reported issues with reading, writing, or learning comprehension. Reports to have dyslexia. 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 FOOlegario works in maintenance for a [employer] in [place]. Infant Supplies: MOB states to have necessary supplies to care for baby at home including safe sleep space and car seat. MOB reports to have clothing for the up to the first 6 months of life. Childcare/Caregiver(s): MOB is primary caregiver. MOB's father helps sometimes. FOB is reportedly helpful, but at certain ages, not necessarily during the initial stage. Transportation: MOB reports to have flag car driver's license and a vehicle to drive. Programs/Agencies Involved: Denies agency involvement. Denies WIC at this time, but reports awareness of this. Declines referral to [facility] or [facility]. Children Services/Legal Issues: Denies legal issues. Denies current or past involvement with children services. Behavioral Health Issues: Mental Health History: MOB reports history of depression, anxiety, and depression. PPD in particular after 2nd child was born. KELLEY reports has been treated with medication on and off through the years, usually with Prozac which reportedly works well. MOB reports willing to take medicine when needed. Reports has been in counseling in the past. MOB shared coping skills such as coloring, as well as others when feeling distress. MOB admits to history of thoughts of suicide during last period where MOB would think of driving into a tree. Reports the thoughts were fleeting, no intent, and no past attempts. MOB identified children as important to MOB, and that suicide is not something MOB feels she could actually ever do. MOB reports the thoughts were bothersome enough, that MOB went to PCP and talked about depression, irritability, that didn't like my son Juan J, and fleeting thoughts of suicide. MOB reports was started on Fluoxetine and this helped stabilize emotions. No thoughts, ideation, or intent reported during this . Substance Use History: Denies and reports is not really even supportive of alcohol in the home. Family History: MOB reports herself, MOB's father and oldest sone have Dyslexia. Oldest son has ODD; second son has anxiety; and FOB has ADHD. Drug Screens: None noted in record. Family/Social Stressors: Unplanned but accept . Oldest son with ODD, which MOB reports requires MOB to approach Yuval differently than Juan J who has anxiety. MOB reports Yuval often accuses MOB that Juan J is MOB's favorite, which MOB reports others often say too, which MOB reports makes things hard at times. MOB denies any favorites. MOB shared about a niece who was born stillborn 4 years ago, and that this was a difficult time. Support Systems: MOB reports her mother is my person as MOB is to her mother Queenie. Depression/Shaken Baby/Safe Sleeping: Reviewed safe sleeping, shaken baby, and mood and anxiety disorders/risk factors/importance of seeking out help and support. MOB able to give appropriate responses on shaken baby and safe sleeping. ASSESSMENT: Met with MOB in room, introducing to self and social work role. MOB holding baby, texting on phone when SW arrived to room. MOB agreeable to speak with this policy writer sales. MOB pleasant, good eye contact throughout. MOB talked about feeding issues with baby and thankful to stay in the hospital another night to ensure baby is doing well, as well as to monitor for MOB's pre-e. When baby awoke, MOB fed baby a bottle that had a small amount of breast milk. Baby sucked on bottle most of the social work visit. MOB handled baby gently and appropriately, though appeared more intent to speaking to this policy writer sales than checking on baby's progress with bottle. MOB more attentive to baby when not speaking, and did care for baby appropriately. MOB indicates to be happy about the baby, smiled down at the baby. MOB spontaneous, verbose in conversation, giving much detail, slightly rambling in the sense that seemed to need to get information out in the open; though speech normal tone and pressure. Somewhat difficult to redirect as MOB appearing to need to finish topic and details at hand. Note that when MOB was given a reframe of what had just communicated to this policy writer sales, MOB would then go on to speak further about reframed topics. Noted that when this policy writer sales provided education on services such as [facility], EHS, or even offering counseling resources noted the MOB's affect constricted, though when this policy writer sales validated or complimented MOB, the MOB would smile and talk about self-awareness, past experiences that have given MOB a global view of things. MOB discussed topics such as volunteer work with troubled children, and even the work that MOB's mother is doing with [facility] turning helping the agency from the inside out, helping to write a parenting program to help families who are working with said agency. MOB shared examples of times in her life when she was self-aware to go to the PCP and get on medication, which all examples were appropriate giving evidence to MOB having insight about seeking out help when in emotional distress. MOB cried when talking about one past experience, relating to the stillbirth of MOB's niece 4 years ago. MOB reports to understand the importance of taking breaks, that fresh air can be good, and agrees to call PCP about medication should depression or anxiety arise and/or become distressing. MOB reports can talk to her mother about anything, and that her mother is supportive. MOB accepted information on mood and anxiety disorders, as well as information on local counseling resources. There have been no voiced concerns regarding parent/child interactions or bonding. Strongly encouaraged MOB to seek out support from PCP to restart medicine should depression/anxiety. MOB agreed. PLAN: MOB and infant to home when ready. Information and resources provided on mood and anxiety disorders. No other services requested or indicated though social work available should needs arise. -VALERIE Ribera, MOBILE LOUNGE DRIVER OR OPERATOR
[2022-03-27] MEDS: FLU VACC QS2022-23(6MOS UP)/PF 60 MCG/0.5 ML SYRINGE IM (16:45)
--- NOTE | 2022-03-27 16:58 | NURSING ---
Reviewed and agreed with Smita PARRA charting.
[2022-03-27] MEDS: NIFEdipine 30 MG Tablet PO (17:19)
[2022-03-27] MEDS: Acetaminophen 500 MG Tablet 1000 MG PO (18:00)
[2022-03-28] VITALS (17 sets, daily range): BP systolic 111–162; BP diastolic 65–103; PULSE 63–111; RESP 16; TEMP 36.6–36.9; O2SAT 96–97
[2022-03-28] MEDS: NIFEdipine 30 MG Tablet PO (09:53)
[2022-03-28] MEDS: Ibuprofen 600 MG Tablet PO (09:53)
--- NOTE | 2022-03-28 11:52 | PCM.DC.BLA ---
Discharge Summary Date of Admission: 03/25/22 Date of Discharge: 03/28/22 Summary: Patient arrived on 03/25/2022 for induction of labor at term. On admission patient was diagnosed with preeclampsia without severe features. Patient subsequently delivered on 03/25/2022 via vaginal delivery. After delivery patient noted to have isolated maternal temperature treated with ampicillin and gentamicin for 24 hours. Patient also with elevated blood pressure started on labetalol later switched to Procardia. Patient wished to go home on 03/28/2022 Meaningful Use Info Meaningful Use Diagnoses (Choose all that apply): None applicable Discharge Plan Admission Admit Date/Time: 03/25/22 07:30 Primary Reason for Your Visit: Induction of labor Attending Provider: Lindsay Goode Primary Care Provider: Maddi Hart Instructions Additional Instructions / Restrictions: Regular diet, weightbearing as tolerated, no intercourse for 4 to 6 weeks. Okay to shower. Call if fevers, chills, chest pain, shortness of breath, nausea vomit, right upper quadrant pain, visual changes. Follow-up this week for blood pressure check Discharge Orders/Prescriptions Prescriptions: No Action 1 mg Tablet 1 tab PO DAILY aspirin 81 mg Capsule 81 mg PO DAILY albuterol sulfate 90 mcg/actuation Hfa Aerosol Inhaler 1 puff INHALATION PRN PRN (Reason: allergies) Referrals / Follow Up: Maddi Hart MD [Primary Care Provider] - Disposition Disposition (needs filled in before D/C Order can be placed): Home, Self Care
--- NOTE | 2022-03-28 11:55 | PN.OBGYN_ITS ---
Subjective Subjective No overnight complaints. Initially with headache now resolved. Denies visual changes, chest pain, shortness of breath, nausea vomit, right upper quadrant pain. Objective Data Objective Data Vital Signs: Vital Signs Temp Pulse Resp BP Pulse Ox O2 Del Method 98.4 F 104 H 16 118/74 97 Room Air 03/28/22 11:36 03/28/22 11:37 03/28/22 11:36 03/28/22 11:37 03/28/22 11:36 03/28/22 11:36 Oxygen Delivery Method Room Air Weight: 178 lb 5.663 oz Body Mass Index (BMI) 34.8 Intake & Output: Intake and Output for Last 24 Hours 03/26/22 03/27/22 03/28/22 23:59 23:59 23:59 Intake Total 300 / 300 Output Total 575 / 575 Balance -275 / -275 Lab / Micro Data Result Diagrams: 03/27/22 06:09 03/27/22 06:09 Physical Exam Const alert, oriented x3, no apparent distress, average body habitus, healthy appearing and well nourished HEENT normocephalic and moist oral mucous membranes Eyes PERRL Resp normal respiratory effort, no retractions and no use of accessory muscles Extremity normal to inspection, full ROM and no clubbing, cyanosis or edema Neuro moves all extremities and no focal motor deficits Psych mental status grossly normal, affect normal, speech normal and activity/motor b ehavior normal Assessment & Plan (1) Vaginal delivery: PLAN: day 3 status post vaginal delivery at term. Breast-feeding. Isolate maternal temperature status post 24 hours of ampicillin and gentamicin, now afebrile. Preeclampsia without severe features, stop labetalol yesterday and started Procardia 30 mg XL daily. Overall patient remains asymptomatic. Patient wishes to be discharged home today. Educated patient on need to stay until tomorrow, risk-benefit alternatives discussed, patient states understanding and wishes to be discharged home today. Will monitor blood pressures every hour today and evaluate discharge home this evening. If discharged home today, blood pressure cuff for home and educated on parameters.
== END 2022-03-28 18:20 | disposition home or self-care (01) | DRG 807 ==
PROVIDERS: Obstetrics & Gynecology; Admitting Provider Student in an Organized Health Care Education/Training Program; PCP Family Medicine; Visit Provider Student in an Organized Health Care Education/Training Program
DX: O14.04 Mild to moderate pre-eclampsia, complicating childbirth (principal); Z37.0 Single live birth; R50.82 Postprocedural fever; O70.0 First degree perineal laceration during delivery; O99.893 Other specified diseases and conditions complicating puerperium; Z3A.39 39 weeks gestation of pregnancy; Z87.891 Personal history of nicotine dependence; Z23 Encounter for immunization
CPT/HCPCS: 59025; 59050; 80053; 83615; 85025; 85027; 86850; 86900; 86901; 99218; J7120; 90686; A4216; G0378

== ENCOUNTER 2024-01-12 14:39 | Emergency (ER) | payer OTHER, SELFPAY ==
[2024-01-12 14:40] VITALS: BP 135/99; PULSE 116; RESP 15; TEMP 37.4; O2SAT 100; BMI 32.2
[2024-01-12] MEDS: Metoclopramide 10 MG/2 ML Vial 5 MG IV (15:14)
--- NOTE | 2024-01-12 15:18 | EX.ED.DYSGE1 ---
HPI History of Present Illness Chief Complaint: Nausea/Vomiting Detail of Chief Complaint: Presents with nausea and vomiting that started last evening. Informant: patient Onset/Context/Timing Onset: Yesterday Context: Sudden Onset Timing: Continuous and Waxes and wanes Quality: Viral upper respiratory symptoms and nausea and vomiting Location: Respiratory and GI Current Severity: Mild Maximum Severity: Moderate Worsened by: Anytime she attempts to eat or drink anything Relieved by: Nothing Associated Symptoms Associated Symptoms: Subjective fever, chills, and viral-like symptoms Narrative Narrative: Patient is a 28-year-old who presents with predominately nausea and vomiting. She went to urgent care. She was given Zofran ODT with no improvement. She was sent to the ER. She denies dry mouth but does endorse thirst and orthostatic lightheadedness. She does complain of frontal headache. Denies double vision blurred vision loss of vision. Denies ringing or ears decreased hearing. She does endorse rhinorrhea, congestion, postnasal drainage and mild sore throat. She does have a cough which is nonproductive. She presently denies abdominal pain. She has had nausea and vomiting. She states she is vomited at least 7 times. She denies diarrhea. She denies coffee-ground emesis or hematemesis. She denies dysuria, frequency, urgency hematuria. She denies symptoms of . Prior similar symptoms: Yes Recent Illness/Hospitalization: No [facility] Medical History Pre-eclampsia Home Medications ?Medication ?Instructions ?Recorded ?Last Taken ?Type aspirin 81 mg capsule 81 mg PO DAILY history of 02/09/22 03/24/22 09:00 History preeclampsia 81 mg [id number] 1 mg 1 tab PO DAILY 02/09/22 03/24/22 09:00 History tablet 1 tab albuterol sulfate 90 mcg/actuation 1 puff inhalation PRN PRN allergies 03/08/22 03/02/22 History aerosol inhaler metoclopramide HCl 5 mg tablet 5 mg PO UD #10 tabs 01/12/24 Unknown Rx (Reglan) Allergy/AdvReac Type Severity Reaction Status Date / Time Sulfa (Sulfonamide Allergy Unknown PT UNSURE Verified 01/12/24 14:40 Antibiotics) OF REACTION oxycodone (Oxycodone) AdvReac Other Verified 01/12/24 14:40 sulfamethoxazole (From AdvReac PT UNSURE Verified 01/12/24 14:40 Bactrim) OF REACTION trimethoprim (From Bactrim) AdvReac PT UNSURE Verified 01/12/24 14:40 OF REACTION Social History Smoking Status: Former smoker ROS ROS ED Constitutional Constitutional ED: Reports chills, fever(s) and subjective; Denies sweats or weight loss Eyes Eyes: Denies blurry vision, change in vision or diplopia ENT ENT ED: Reports rhinorrhea; Denies ear pain or sore throat Cardiovascular Cardiovascular: Denies chest pain, orthopnea, palpitations or paroxysmal nocturnal dyspnea Respiratory/Chest Respiratory/Chest: Reports cough; Denies dyspnea, dyspnea on exertion, orthopnea, paroxysmal nocturnal dyspnea or sputum Gastrointestinal Gastrointestinal: Reports nausea and vomiting; Denies abdominal pain, constipation, diarrhea or melena Genitourinary Genitourinary ED: Denies dysuria, hematuria or urinary frequency Musculoskeletal Musculoskeletal: Denies arthralgias or myalgias Integumentary Denies rash Neurologic Neurologic: Reports headache(s); Denies paresthesias or weakness Endocrine Endocrinology: Denies cold intolerance or heat intolerance Hematologic/Lymphatic Hematologic/Lymphatic: Reports systems reviewed and no addt'l complaints, except as documented EXAM Physical Exam Const Vital Signs: 01/12/24 14:40 01/12/24 15:41 Temperature 99.3 F H Temperature Source Oral Pulse Rate 116 H Pulse Rate [Lying] 97 Pulse Rate [Sitting (for 1 minute prior to obtaining)] 110 H Pulse Rate [Standing (for 1 minute prior to obtaining)] 123 H Respiratory Rate 15 Blood Pressure 135/99 H Blood Pressure [Lying] 125/67 H Blood Pressure [Sitting (for 1 minute prior to obtaining)] 138/83 H Blood Pressure [Standing (for 1 minute prior to obtaining)] 114/72 Blood Pressure Mean 111 Blood Pressure Mean [Lying] 86 Blood Pressure Mean [Sitting (for 1 minute prior to obtaining)] 101 Blood Pressure Mean [Standing (for 1 minute prior to obtaining)] 86 Pulse Ox 100 Oxygen Delivery Method Room Air Positive well nourished and well developed General Appearance ED: well developed, NAD and pallor HEENT Reports TM's clear and moist mucous membranes Negative for trauma or tenderness Tympanic Membrane ED: Yes TM's clear Eyes PERRL and EOMs intact bilaterally General Eye ED: Negative for pale conjunctiva or scleral icterus Neck no lymphadenopathy, supple and no JVD Chest Wall inspection of chest normal and palpation of chest normal Resp normal respiratory effort and clear to auscultation bilaterally Cardio regular rate, regular rhythm, S1 normal heart sound, S2 normal heart sound and no murmurs GI normal to inspection, nondistended, normoactive bowel sounds, non-tender, non-distended and no masses; Negative for hepatosplenomegaly Back/Spine no CVA tenderness Extremity normal to inspection Extremity Narrative: There is no clubbing or cyanosis noted. General Extremety ED: Negative for edema or tenderness General Extremity: Negative for edema Neuro oriented x3 and CN's II-XII intact bilaterally Sensorium / Orientation: alert Psych mental status grossly normal Skin no rashes or lesions noted and skin turgor normal General Skin Exam: elasticity normal and pallor; Negative for jaundice MDM MDM MDM Narrative Medical decision making narrative: Patient's history and physical is consistent with a viral illness. Patient is tachycardic. Will obtain orthostatic vitals. If orthostatic vitals are normal no IV fluids. She was treated with Reglan for her nausea and vomiting. History & Record Review Additional record(s) reviewed:: Prior ED visit (Last ER visit was 2017 for nausea and vomiting. Prior to that she was seen in 2016 for hyperemesis gravidarum.) and Prior labs Treatment and Re-Evaluation :: Patient was reassessed at 1556. She is eating crackers. She has consumed quarter of a bottle of Powerade. She has had no vomiting after Reglan. Plan is to discharge with prescription for Reglan. Discharge Plan Triage Chief Complaint: Nausea/Vomiting ED Provider: Lisandro Merlos Dx/Rx/DC Orders Clinical Impression: Systemic viral illness, Nausea & vomiting, Orthostatic hypotension, Sinus tachycardia, Acute dehydration Instructions: ED Viral Syndrome (Adult) Prescriptions: New metoclopramide HCl [Reglan] 5 mg tablet 5 mg PO UD Qty: 10 0RF Rx Instructions: 1/2-hour before meals and at bedtime No Action 1 mg Tablet 1 tab PO DAILY aspirin 81 mg Capsule 81 mg PO DAILY albuterol sulfate 90 mcg/actuation Hfa Aerosol Inhaler 1 puff INHALATION PRN PRN (Reason: allergies) Primary Care Provider: Maddi Hart Referrals: Maddi Hart MD [Primary Care Provider] - As Needed Print Language: German Disposition Disposition: Home, Self Care
[2024-01-12 15:41] VITALS: BP 114/72; BP 125/67; BP 138/83; PULSE 110; PULSE 123; PULSE 97
[2024-01-12 15:58] VITALS: BP 128/75; PULSE 100; RESP 15; TEMP 37.1; O2SAT 99
== END 2024-01-12 16:05 | disposition home or self-care (01) ==
PROVIDERS: Emergency Provider Emergency Medicine; PCP Family Medicine; Visit Provider Emergency Medicine
DX: B34.9 Viral infection, unspecified (principal); R11.2 Nausea with vomiting, unspecified; I95.1 Orthostatic hypotension; E86.0 Dehydration; R00.0 Tachycardia, unspecified; Z87.891 Personal history of nicotine dependence
CPT/HCPCS: 96374; 99283; A4216